=== PATIENT | female | born 1960 | race Caucasian/White ===

== ENCOUNTER → 2017-02-23 | Outpatient (CLI) | payer OTHER | LOC: BMCIMAGING 13:08 | PROVIDERS: ATTEND Family Medicine | DX: R05 Cough (principal); R68.89 Other general symptoms and signs ==

== ENCOUNTER 2017-09-16 16:44 | Emergency (ER) | payer OTHER ==
[2017-09-16 16:50] VITALS: BP 128/80; PULSE 71; RESP 15; TEMP 98.1; O2SAT 95
--- NOTE | 2017-09-16 17:14 | EDPHY ---
H & P Stated Complaint: bit on [place] by [place] [employer] [place] Time Seen by Provider: 09/16/17 16:53 HPI/ROS: Chief Complaint: Dog bite lower lip HPI: The patient presents the ED after she was bit by a dog on her lower lip. [place] The patient reports the dog was well kept. The animals demolition engineer reported the dog has been vaccinated. Patient has declined a animal Control notification. The patient reports her tetanus shot is up-to-date. The patient denies any acute complaints. She sustained a very superficial puncture on her left lower lip. She denies additional injury. REVIEW OF SYSTEMS: Neuro: no headache, numbness, weakness Musculoskeletal: as above Skin: Puncture as above Source: Patient Exam Limitations: No limitations - Personal History Current Tetanus/Diphtheria Vaccine: Yes - Medical/Surgical History Hx Asthma: No Hx Chronic Respiratory Disease: No Hx Diabetes: No Hx Cardiac Disease: No Hx Renal Disease: No Hx Cirrhosis: No Hx Alcoholism: No Hx HIV/AIDS: No Hx Splenectomy or Spleen Trauma: No Other PMH: denies - Social History Smoking Status: Never smoked - Physical Exam Exam: General: No acute distress Head: Superficial puncture noted to the left lower lip, no intraoral puncture noted, no laceration, no additional injury. Constitutional: Initial Vital Signs Temperature (C) 36.7 C 09/16/17 16:47 Heart Rate 71 09/16/17 16:47 Respiratory Rate 15 09/16/17 16:47 Blood Pressure 128/80 H 09/16/17 16:47 O2 Sat (%) 95 09/16/17 16:47 O2 Delivery Mode Room Air Allergies/Adverse Reactions: No Known Allergies Allergy (Unverified 09/16/17 16:45) Home Medications: Medication Instructions Recorded Ambien 09/16/17 Lorazepam 09/16/17 Wellbutrin Sr 09/16/17 Medical Decision Making ED Course/Re-evaluation: The patient presents to the ED with a superficial puncture wound following a puppy bite. The patient's tetanus shot is up to date. The patient will be started on Augmentin. The patient has declined a animal Control report. The patient has been told there is not an indication for rabies vaccination as canine rabies in [place] is non-existent. Departure - Departure Disposition: Home, Routine, Self-Care Clinical Impression: Dog bite Condition: Good Instructions: Animal Bite (ED) Additional Instructions: 1. Take Augmentin as directed for next 7 days. 2. Return to the ED for increasing pain, redness, swelling or fever as this may be the sign of infection. 3. There is not an indication for rabies vaccination for a dog bite [place] parent. Referrals: Tricia Montilla MD [Primary Care Provider] - As per Instructions
== END 2017-09-16 17:25 | disposition home or self-care (01) ==
DX: S01.551A Open bite of lip, initial encounter (principal); W54.0XXA Bitten by dog, initial encounter; Y92.410 Unspecified street and highway as the place of occurrence of the external cause; Y99.8 Other external cause status; Y93.01 Activity, walking, marching and hiking

== ENCOUNTER 2017-11-11 17:09 | Emergency (ER) | payer OTHER ==
[2017-11-11] MEDS ORDERED: DEXAMETHASONE 4 MG TAB PO ONE (18:21)
--- NOTE | 2017-11-11 18:24 | EDPHY ---
H & P Stated Complaint: inteermittent sharp temporal/face/head and ear pain r/o temperal arteritis Time Seen by Provider: 11/11/17 18:08 HPI/ROS: CHIEF COMPLAINT: Left scalp pain HISTORY OF PRESENT ILLNESS: The patient is a 57-year-old female with no significant past medical history comes to the emergency department complaining of left scalp pain. She states that it feels like her scalp is sore like if she were a pony tail for too long and then brought her here back down. Occasionally she has sharp shooting pain to the left side of her head that will only last for second or 2. No claudication. No fever or recent infection. No trauma. No vision changes. No pain in the eye itself. No dental pain. No hearing changes. She called her doctor today who sent her here to rule out temporal arteritis. She does not have any immuno compromising conditions. No autoimmune disorders. She does not take any medications. REVIEW OF SYSTEMS: Constitutional: denies: chills, fever, recent illness, recent injury EENTM: Head HPI denies: blurred vision, double vision, nose congestion Respiratory: denies: cough, shortness of breath Cardiac: denies: chest pain, irregular heart rate, lightheadedness, palpitations Gastrointestinal/Abdominal: denies: abdominal pain, diarrhea, nausea, vomiting, blood streaked stools Genitourinary: denies: dysuria, frequency, hematuria, pain Musculoskeletal: denies: joint pain, muscle pain Skin: denies: lesions, rash, jaundice, bruising Neurological: denies: headache, numbness, paresthesia, tingling, dizziness, weakness Hematologic/Lymphatic: denies: blood clots, easy bleeding, easy bruising Immunologic/allergic: denies: HIV/AIDS, transplant EXAM: GENERAL: Well-appearing, well-nourished and in no acute distress. HEAD: Atraumatic, normocephalic. EYES: Pupils equal round and reactive to light, extraocular movements intact, sclera anicteric, conjunctiva are normal. ENT: TMs normal, nares patent, oropharynx clear without exudates. Moist mucous membranes. NECK: Normal range of motion, supple without lymphadenopathy or JVD. LUNGS: Breath sounds clear to auscultation bilaterally and equal. No wheezes rales or rhonchi. HEART: Regular rate and rhythm without murmurs, rubs or gallops. ABDOMEN: Soft, nontender, normoactive bowel sounds. No guarding, no rebound. No masses appreciated. BACK: No CVA tenderness, no spinal tenderness, step-offs or deformities EXTREMITIES: Normal range of motion, no pitting or edema. No clubbing or cyanosis. NEUROLOGICAL: Cranial nerves II through XII grossly intact. Normal speech, normal gait. 5/5 strength, normal movement in all extremities, normal sensation PSYCH: Normal mood, normal affect. SKIN: Warm, dry, normal turgor, no visible rashes or lesions. Source: Patient Exam Limitations: No limitations - Personal History Current Tetanus/Diphtheria Vaccine: Yes - Medical/Surgical History Hx Asthma: No Hx Chronic Respiratory Disease: No Hx Diabetes: No Hx Cardiac Disease: No Hx Renal Disease: No Hx Cirrhosis: No Hx Alcoholism: No Hx HIV/AIDS: No Hx Splenectomy or Spleen Trauma: No Other PMH: denies - Family History Significant Family History: No pertinent family hx - Social History Smoking Status: Never smoked Alcohol Use: Sober Drug Use: None Constitutional: Initial Vital Signs Temperature (C) 36.8 C 11/11/17 17:39 Heart Rate 83 11/11/17 17:39 Respiratory Rate 16 11/11/17 17:39 Blood Pressure 136/86 H 11/11/17 17:39 O2 Sat (%) 97 11/11/17 17:39 O2 Delivery Mode Room Air Allergies/Adverse Reactions: No Known Allergies Allergy (Verified 11/11/17 17:38) Home Medications: Medication Instructions Recorded Ambien 09/16/17 Lorazepam 09/16/17 Wellbutrin Sr 09/16/17 Medical Decision Making - Diagnostics EKG Interpretation: An EKG obtained and was read and documented in trace view. Please see trace view for full reading and report. Sinus rhythm, no acute ischemic changes ED Course/Re-evaluation: The patient has a normal exam. No erythema or tenderness. No claudication. No vision changes. Normal the ear nose exam. No sign of varicella on exam. We discussed possible causes and obtain lab work and I will start her on a small dose of steroids. She denies headache or neck pain. 7:20 p.m. we discussed the lab work which is reassuring. Her symptoms have not recurred. She denies eye pain dental pain fever, trauma etc. She feels comfortable being discharged at this time. I do not think that any imaging is indicated. She will follow up with her doctor in the next day or 2. We also discussed indications for returning here. Differential Diagnosis: Partial list of the Differential diagnosis considered include but were not limited to; temporal arteritis, shingles, muscle strain and although unlikely based on the history and physical exam, I also considered the trigeminal neuralgia, tumor, seizure, meningitis, glaucoma, dental infection, stroke. I discussed these differential diagnoses and the plan with the patient as well as the usual and expected course. The patient understands that the diagnosis is provisional and that in medicine we are not always correct and that further workup is often warranted. Usual and customary warnings were given. All of the patient's questions were answered. The patient was instructed to return to the emergency department should the symptoms at all worsen or return, otherwise to followup with the physician as we discussed. - Data Points Laboratory Results: Laboratory Results 11/11/17 18:36 11/11/17 18:36 Medications Given: Discontinued Medications Dexamethasone (Decadron) 10 mg PO EDNOW ONE Stop: 11/11/17 18:22 Last Admin: 11/11/17 18:28 Dose: 10 mg Departure - Departure Disposition: Home, Routine, Self-Care Clinical Impression: Scalp pain Condition: Fair Instructions: Acute Headache (ED) Referrals: Tricia Montilla MD [Primary Care Provider] - As per Instructions
[2017-11-11 18:49] LABS: PLATELET COUNT 247 10^3/uL (150-400)
--- NOTE | 2017-11-11 19:38 | CPEKG ---
Heart Rate: 72 RR Interval: 833 P-R Interval: 168 QRSD Interval: 80 QT Interval: 400 QTC Interval: 438 P [place]: 49 QRS [place]: 53 T Wave [place]: 43 EKG Severity - NORMAL ECG - EKG Impression: SINUS RHYTHM Electronically Signed By: Denton Kruse 11-Nov-2017 20:01:10
[2017-11-11 20:09] VITALS: BP 128/72; PULSE 71; RESP 15; TEMP 98.4; O2SAT 95
== END 2017-11-11 20:00 | disposition home or self-care (01) ==
DX: R51 Headache (principal)

== ENCOUNTER → 2018-01-20 | Outpatient (CLI) | payer OTHER | LOC: FIMAGING 13:01 | PROVIDERS: ATTEND Family Medicine | DX: Z12.31 Encounter for screening mammogram for malignant neoplasm of breast (principal) ==

== ENCOUNTER → 2018-07-29 | Outpatient (CLI) | payer OTHER | LOC: BMCIMAGING 13:28 | PROVIDERS: ATTEND Physician Assistant | DX: M17.12 Unilateral primary osteoarthritis, left knee (principal); M25.462 Effusion, left knee ==

== ENCOUNTER → 2019-04-01 | Outpatient (CLI) | payer OTHER | LOC: EMCIMAGING 07:49 ==